=== PATIENT | male | born 1955 | race Caucasian/White ===

== ENCOUNTER 2018-01-04 13:33 | Emergency (ER) | payer OTHER ==
[~2018-01-04] VITALS: Ht 177.8 cm; Wt 78.0 kg
[~2018-01-04 13:33] MED LIST: AMOCLA875 PO; OXYACE5T PO
[2018-01-04] MEDS ORDERED: CEPH500 PO (15:11)
== END 2018-01-04 15:17 | disposition home or self-care (01) ==
LOC: ER 13:33
DX: S68.124A Partial traumatic metacarpophalangeal amputation of right ring finger, initial encounter (principal); Z23 Encounter for immunization; Z88.5 Allergy status to narcotic agent; W31.89XA Contact with other specified machinery, initial encounter
CPT/HCPCS: 12001; 73140; 90471; 90714; 96372; 99282-25; J0690

== ENCOUNTER 2018-01-16 13:14 | Emergency (ER) | payer OTHER ==
[~2018-01-16] VITALS: Ht 177.8 cm; Wt 78.5 kg
[~2018-01-16 13:14] MED LIST changes: +CEPH500 PO
== END 2018-01-16 13:35 | disposition home or self-care (01) ==
LOC: ER 13:14
DX: S61.214D Laceration without foreign body of right ring finger without damage to nail, subsequent encounter (principal); Z88.5 Allergy status to narcotic agent; Z88.8 Allergy status to other drugs, medicaments and biological substances

== ENCOUNTER 2018-08-27 09:45 | Observation (INO) | payer MEDICARE ==
[~2018-08-27] VITALS: Ht 175.3 cm; Wt 70.2 kg
[2018-08-27 10:46] LABS: BASOPHILS ABSOLUTE AUTO 0.07 K/mm3 (0.00-0.23); BASOPHILS PERCENT AUTO 1 % (0-2); EOSINOPHILS ABSOLUTE AUTO 0.07 K/mm3 (0.00-0.68); EOSINOPHILS PERCENT AUTO 1 % (0-6); Hematocrit 43.7 % (37.0-53.0); Hemoglobin 14.7 g/dL (13.5-17.5); IMMATURE GRAN ABSOLUTE AUTO 0.07 K/mm3 (0.00-0.10); IMMATURE GRAN PERCENT AUTO 1 % (0-1); LYMPHOCYTES ABSOLUTE AUTO 1.32 K/mm3 (0.84-5.20); LYMPHOCYTES PERCENT AUTO 9 % (21-46); MONOCYTES ABSOLUTE AUTO 0.56 K/mm3 (0.16-1.47); MONOCYTES PERCENT AUTO 4 % (4-13); Mean Corpuscular HGB 33.9 pg (26.0-34.0); Mean Corpuscular HGB Conc 33.6 g/dL (31.5-36.5); Mean Corpuscular Volume 101 fL (80-100); NEUTROPHILS ABSOLUTE AUTO 12.47 K/mm3 (1.96-9.15); NEUTROPHILS PERCENT AUTO 86 % (41-73); Platelet Count 240 K/mm3 (150-400); RDW Coefficient Variation 12.4 % (11.7-14.2); RDW Standard Deviation 46.3 fL (35.1-46.3); Red Blood Cell Count 4.34 M/mm3 (4.30-5.90); White Blood Cell Count 14.56 K/mm3 (4.00-11.30)
[2018-08-27 11:00] LABS: Alanine Aminotransfer (ALT/SGP 22 U/L (12-78); Albumin, Blood 3.8 g/dL (3.4-5.0); Albumin/Globulin Ratio 1.2 (0.8-1.8); Alk Phos 74 U/L (50-136); Anion Gap 6 mmol/L (6-16); Aspartate Aminotrans (AST/SGOT 16 U/L (12-37); Bilirubin, Total 0.4 mg/dL (0.1-1.0); Blood Urea Nitrogen 15 mg/dL (8-24); CO2, Blood 27 mmol/L (21-32); Calcium, Blood 8.7 mg/dL (8.5-10.1); Chloride, Blood 108 mmol/L (98-108); Creatinine, Blood 0.63 mg/dL (0.60-1.20); Globulin, Blood 3.2 g/dL (2.2-4.0); Glomerular Filtration Rate >60 (60-); Glucose, Blood 114 mg/dL (70-99); Magnesium, Blood 2.1 mg/dL (1.6-2.4); Sodium, Blood 141 mmol/L (136-145); Troponin I <0.015 ng/mL (0.000-0.040)
[2018-08-27] MEDS ORDERED: ASPI325 PO (11:54)
[2018-08-27] MEDS ORDERED: IBUP400 PO (11:54)
[2018-08-27 18:20] LABS: Free Thyroxine 0.98 ng/dL (0.70-1.60)
[2018-08-27 18:22] LABS: Thyroid Stimulating Hormone 0.956 uIU/mL (0.360-4.800)
--- NOTE | 2018-08-27 19:16 | NUR ---
SHIFT SUMMARY PT ARRIVED TO PCU 15 VIA BED FROM ED AT APPROX 1820. PT VSS WITH SOME ASYMPTOMATIC BRADYCARDIA AT 56. PT UP TO TRANSFER FROM ED BED TO HOSPITAL BED IND. WITH SLIGHT DIAPHORESIS WITH AMBULATION. DIAPHORESIS SUBSIDED WITHIN 5 MINUTES. PT ON RA. BILAT LUNGS CLEAR. GALLOP NOTED ON HEART SOUNDS. SEE ADMISSION ASSESSMENT FOR DETAILED HX. PT STATES 10 LB UNINTENTIONAL WEIGHT LOSS IN PAST MONTH. PT STATES EXCESSIVE FATIGUE IN PAST MONTH. PT IN PCU FOR OBS. ECHO IN AM. HANDOFF GIVEN TO JOSE FERRER RN.
--- NOTE | 2018-08-27 22:33 | NUR ---
ASSUMED CARE OF PATIENT AT APPROXIMATELY 1905 FROM MASHA Alfaro RN AND XIN Cooper RN. PATIENT ALERT AND ORIENTED X4; SBA OUT OF BED D/T SYNCOPE X2 TODAY. PATIENT REPORTS SOME DIAPHORESIS WITH AMBULATION OCCASIONALLY. PATIENT DENIES PAIN, NUMBNESS, TINGLING, DIZZINESS AND NAUSEA. SB ON TELE; OXYGEN SATURATION ABOVE 90% ON ROOM AIR. PATIENT REPORTS HE THINKS HE NORMALLY HAS A LOWER HR. CARDIO CONSULT CALLED IN. NS INFUSING PER ORDER. PATIENT CURRENTLY RESTING IN BED; CALL LIGHT IN REACH; BED IN LOWEST POSISTION; WILL CONTINUE TO MONITOR AND ASSESS UNTIL END OF SHIFT.
[2018-08-28 02:33] LABS: Anion Gap 6 mmol/L (6-16); Blood Urea Nitrogen 12 mg/dL (8-24); Bun/Creatinine Ratio 19.6 (12.0-20.0); CO2, Blood 26 mmol/L (21-32); Calcium, Blood 8.4 mg/dL (8.5-10.1); Chloride, Blood 112 mmol/L (98-108); Creatinine, Blood 0.61 mg/dL (0.60-1.20); Glomerular Filtration Rate >60 (60-); Glucose, Blood 93 mg/dL (70-99); Sodium, Blood 144 mmol/L (136-145)
--- NOTE | 2018-08-28 09:25 | NUR ---
SHIFT NOTE ASSUMED CARE OF PT AT APPROX 0715. VSS AND IN NO APPARENT SIGNS OF DISTRESS. SINGLE ACUTE EPISODE OF SINUS FRANKIE DOWN TO 39 AT 0644. PER PT, ASYMPTOMATIC AT THAT TIME. WILL CONTINUE TO CLOSELY MONITOR HR AND SX. ECHO IN THIS AM, AWAITING RESULTS. CARDS CONSULT IN AND AWAITING DR CONSULT WITH PT. AT THIS TIME, PT IS RESTING COMFORTABLY. PT WITH GOOD APPITITE. PT DENIES DIAPHORESIS, NAUSEA, SOB, CHEST PAIN, CHEST PRESSURE. PT WITHOUT COMPLAINTS OR QUESTIONS AT THIS TIME. SEE SHIFT ASSESSMENT FOR DETAILED ASSESSMENT. WILL CONTINUE TO MONITOR AND UPDATE APPROPRIATE
--- NOTE | 2018-08-28 10:54 | NUR ---
Echocardiogram completed.
--- NOTE | 2018-08-28 17:34 | NUR ---
Update: DC instructions provided to pt. IV removed. Pt currently waiting for spouse to pick pt up. Pt getting dressed in room. Will continue to monitor until pt leaves hospital campus. Denies any further questions, complaints or requests at this time.
--- NOTE | 2018-08-28 18:27 | NUR ---
Update: Pt officially discharged at 182.
--- NOTE | 2018-08-28 19:21 | NUR ---
shift summary pt vss this shift. no acute changes. pt without distress or chest pain or chest pressure. pt tolerated activity with normal heart rate response. pt denies diaphoresis with ambulation as shift went on. pt denies sob or difficulty breathing throughout shift. pt denies changes in mentation or dizzyness throughout shift. dr mascorro in with pt this afternoon discussing probable single vasovagal syncople episode likely to be an isolated event and not a recurring issue. dr perez notified of dr mascorro clearing pt to d/c and pt d/c at 1835.
== END 2018-08-28 17:55 | disposition home or self-care (01) ==
LOC: ER 09:45 → PCU 09:46
PROVIDERS: Internal Medicine; ADMIT Internal Medicine
DX: R55 Syncope and collapse (principal); D72.829 Elevated white blood cell count, unspecified; Z88.5 Allergy status to narcotic agent
CPT/HCPCS: 36415; 71046; 80048; 80053; 83735; 84439; 84443; 84484; 85025; 85379; 93005; 93010; 93306; 93880; 96360; 96361; 99285-25; G0378; J7030

== ENCOUNTER → 2018-09-17 | Outpatient (CLI) | payer MEDICARE ==
[~2018-09-17] MED LIST changes: +ASPI325 PO; +IBUP400 PO
== END | disposition home or self-care (01) ==
LOC: LAB 17:31 → LAB SHORT 17:31
DX: R55 Syncope and collapse (principal); R41.3 Other amnesia
CPT/HCPCS: 87086

== ENCOUNTER 2018-10-21 08:33 | Day surgery (SDC) | payer MEDICARE ==
[~2018-10-21] VITALS: Ht 172.7 cm; Wt 75.0 kg
[~2018-10-21 08:33] MED LIST changes: +MOTRIN IB200 MG PO
--- NOTE | 2018-10-21 09:39 | NUR ---
Pt with clear lungs, SB
--- NOTE | 2018-10-21 17:17 | NUR ---
PT HAS BEEN STABLE POST PACEMAKER PLACEMENT. PAIN MINIMAL IN CHEST, MANAGED WITH ICE PACK AND TYLENOL PRN. PT CAROLANN CARDIAC DIET WELL. UP TO VOID WITH MIN ASSIST. SLING IN PLAVE TO LEFT ARM TO ENCOURAGE FOLLOWING PRECAUTIONS. GAUZE TO LEFT CHEST WALL, CDI. PLAN FOR EKG IN THE AM WELL CHEST XRAY. TELE SR/PACED. PT HAD SUDDEN ONSET SWEATING X1 WITH NO TELE CHANGES, CP OR ACCOMPANYING SYMPTOMS. PROBABLE DC HOME TOMORROW IF STABLE. PAS TO BLE. USES CALL LIGHT APPROPRIATELY NEEDED.
--- NOTE | 2018-10-22 06:40 | NUR ---
SHIFT SUMMARY LYING IN LOW FOWLERS WITH EYES CLOSED. MINIMAL ASSIST THIS SHIFT AND TOLERATED WELL, HAS BEEN INDEPENDENT MOST OF THE TIME IN ROOM. DENIES PAIN, DISCOMFORT, OR FURTHER NEEDS AT THIS TIME. SAFETY MEASURES IN PLACE. WILL GIVE HAND OFF TO ONCOMING SHIFT USING SBAR.
--- NOTE | 2018-10-22 09:43 | NUR ---
ROUNDING: DR JEAN IN TO SEE PATIENT. PLAN TO REVIEW CXR AND EKG AND PROBABLE DC TO HOME TODAY. DRESSING WNL. TELE 100% PACED. DC INSTRUCTIONS REVIEWED WITH PATIENT BY DOCTOR.
--- NOTE | 2018-10-22 12:05 | NUR ---
DISCHARGE: PT DC TO HOME AT THIS TIME WITH SPOUSE. VERBALIZED UNDERSTANDING OF INSTRUCTIONS, FOLLOW UP, PROBLEMS TO REPORT AND MEDICATIONS. IV DC'D WNL. PT LEFT AMBULATORY TO CAR WITH BELONGINGS.
== END 2018-10-22 12:04 | disposition home or self-care (01) ==
LOC: MHTC 08:33 → SURS 11:50 → MHTC 12:07 → SURS 10-22 12:04
PROC: 0JH606Z Insertion of Pacemaker, Dual Chamber into Chest Subcutaneous Tissue and Fascia, Open Approach (ICD-10-PCS; principal; 2018-10-21)
PROC: 02HK3JZ Insertion of Pacemaker Lead into Right Ventricle, Percutaneous Approach (ICD-10-PCS; 2018-10-21)
DX: I49.5 Sick sinus syndrome (principal); I44.39 Other atrioventricular block; F41.9 Anxiety disorder, unspecified; F32.9 Major depressive disorder, single episode, unspecified; K57.90 Diverticulosis of intestine, part unspecified, without perforation or abscess without bleeding; Z87.891 Personal history of nicotine dependence; Z88.5 Allergy status to narcotic agent
CPT/HCPCS: 33208; 33228; 71045; 71046; 76937; 93005; 93010; 99152; A9270; C1785; C1898; J0690; J1644; J2250; J3010; J7030; J7040

== ENCOUNTER 2021-09-20 07:13 | Day surgery (SDC) | payer MEDICARE ==
[~2021-09-20] VITALS: Ht 177.8 cm; Wt 78.5 kg
--- NOTE | 2021-09-20 07:41 | NUR ---
09/20/21 0741 Meliton Panchal CALL LIGHT WITHIN REACH. TETRACAINE AT 0935 PLEDGETT AT 0737 IN THE LEFT EYE
== END 2021-09-20 09:05 | disposition home or self-care (01) ==
LOC: ORSCSDS 07:13
PROVIDERS: Ophthalmology
PROC: 08RK3JZ Replacement of Left Lens with Synthetic Substitute, Percutaneous Approach (ICD-10-PCS; principal; 2021-09-20 08:30)
DX: H25.13 Age-related nuclear cataract, bilateral (principal); G47.33 Obstructive sleep apnea (adult) (pediatric); N18.9 Chronic kidney disease, unspecified; I25.10 Atherosclerotic heart disease of native coronary artery without angina pectoris; Z95.0 Presence of cardiac pacemaker; N18.6 End stage renal disease; Z79.82 Long term (current) use of aspirin; Z79.899 Other long term (current) drug therapy
CPT/HCPCS: J2001; J2250; J3010; J3301; J7040; V2632

== ENCOUNTER 2021-10-11 07:18 | Day surgery (SDC) | payer MEDICARE ==
[~2021-10-11] VITALS: Ht 177.8 cm; Wt 76.8 kg
== END 2021-10-11 09:07 | disposition home or self-care (01) ==
LOC: ORSCSDS 07:18
PROVIDERS: Ophthalmology
PROC: 08RJ3JZ Replacement of Right Lens with Synthetic Substitute, Percutaneous Approach (ICD-10-PCS; principal; 2021-10-11 08:30)
DX: H25.11 Age-related nuclear cataract, right eye (principal); Z95.0 Presence of cardiac pacemaker; I10 Essential (primary) hypertension; G47.33 Obstructive sleep apnea (adult) (pediatric); F41.9 Anxiety disorder, unspecified; F32.A Depression, unspecified; Z79.82 Long term (current) use of aspirin; Z79.899 Other long term (current) drug therapy
CPT/HCPCS: J2001; J2250; J3010; J3301; J7040; V2632

== ENCOUNTER 2024-11-05 17:23 | Emergency (ER) | payer MEDICARE ==
[~2024-11-05] VITALS: Ht 177.8 cm; Wt 68.0 kg
[2024-11-05 18:01] LABS: BASOPHILS ABSOLUTE AUTO 0.04 K/mm3 (0.00-0.23); BASOPHILS PERCENT AUTO 0 % (0-2); EOSINOPHILS ABSOLUTE AUTO 0.04 K/mm3 (0.00-0.68); EOSINOPHILS PERCENT AUTO 0 % (0-6); Hematocrit 39.2 % (37.0-53.0); Hemoglobin 13.5 g/dL (13.5-17.5); IMMATURE GRAN ABSOLUTE AUTO 0.06 K/mm3 (0.00-0.10); IMMATURE GRAN PERCENT AUTO 0 % (0-1); LYMPHOCYTES ABSOLUTE AUTO 1.63 K/mm3 (0.84-5.20); LYMPHOCYTES PERCENT AUTO 11 % (21-46); MONOCYTES ABSOLUTE AUTO 0.89 K/mm3 (0.16-1.47); MONOCYTES PERCENT AUTO 6 % (4-13); Mean Corpuscular HGB 34.4 pg (26.0-34.0); Mean Corpuscular HGB Conc 34.4 g/dL (31.5-36.5); Mean Corpuscular Volume 100 fL (80-100); Mean Platelet Volume 9.9 fL (9.1-12.4); NEUTROPHILS ABSOLUTE AUTO 12.64 K/mm3 (1.96-9.15); NEUTROPHILS PERCENT AUTO 83 % (41-73); Platelet Count 228 K/mm3 (150-400); RDW Coefficient Variation 12.9 % (11.7-14.2); RDW Standard Deviation 47.8 fL (35.1-46.3); Red Blood Cell Count 3.93 M/mm3 (4.30-5.90)
[2024-11-05 18:30] LABS: Albumin, Blood 3.4 g/dL (3.4-5.0); Albumin/Globulin Ratio 0.8 (0.8-1.8); Bilirubin, Total 0.8 mg/dL (0.1-1.0); Bun/Creatinine Ratio 27.4 (12.0-20.0); Creatinine, Blood 0.66 mg/dL (0.60-1.20); Potassium, Blood 3.8 mmol/L (3.5-5.5); Total Protein, Blood 7.4 g/dL (6.4-8.2)
[2024-11-05] MEDS ORDERED: CIPROFLOXACIN IV ONE (20:25)
[2024-11-05] MEDS ORDERED: MetroNIDAZOLE 500MG/NS 100 ml 100 ML IV ONE (20:25)
[2024-11-05] MEDS ORDERED: [UNRECOGNIZED DRUG - OTHER] IV ONE (20:25)
[2024-11-05 20:35] LABS: Source, Urine Clean Catch
[2024-11-05 20:49] LABS: Appearance, Urine Clear (Clear); Bilirubin, Urine Neg (Neg); Blood, Urine 2+ (Neg); Color, Urine Yellow (P-Yellow); Glucose Qualitative, Urine Neg (Neg); Ketones, Urine 3+ (Neg); Leukocyte Esterase, Urine 1+ (Neg); Nitrite, Urine Neg (Neg); Protein, Urine 1+ (Neg); Urobilinogen, Urine NORM (Normal)
[2024-11-05 20:57] LABS: Bacteria Rare /hpf; Red Blood Cells, Urine Not Seen /hpf (0-2); Squamous Epithelial Cells Rare /hpf (Few)
[2024-11-05 22:00] VITALS: BP 130/80
[2024-11-05] MEDS ORDERED: CIPR500 PO (22:18)
[2024-11-05] MEDS ORDERED: METR500 PO (22:18)
== END 2024-11-05 22:27 | disposition home or self-care (01) ==
LOC: ER 17:23
PROVIDERS: Student in an Organized Health Care Education/Training Program
DX: K57.30 Diverticulosis of large intestine without perforation or abscess without bleeding (principal); Z88.5 Allergy status to narcotic agent; Z79.82 Long term (current) use of aspirin; Z87.891 Personal history of nicotine dependence
CPT/HCPCS: 71046; 74177; 80053; 81001; 83605; 83690; 83880; 84484; 85025; 87077; 87086; 87186; 93005; 93010; 96365-59; 96367; 99284-25; J0744; Q9967

== ENCOUNTER 2024-12-27 13:32 | Emergency (ER) | payer MEDICARE ==
[~2024-12-27] VITALS: Ht 177.8 cm; Wt 68.0 kg
[~2024-12-27 13:32] MED LIST changes: +CIPR500 PO; +METR500 PO
[2024-12-27 14:44] LABS: BASOPHILS ABSOLUTE AUTO 0.05 K/mm3 (0.00-0.23); BASOPHILS PERCENT AUTO 1 % (0-2); EOSINOPHILS ABSOLUTE AUTO 0.03 K/mm3 (0.00-0.68); EOSINOPHILS PERCENT AUTO 0 % (0-6); Hematocrit 39.8 % (37.0-53.0); Hemoglobin 13.8 g/dL (13.5-17.5); IMMATURE GRAN ABSOLUTE AUTO 0.02 K/mm3 (0.00-0.10); IMMATURE GRAN PERCENT AUTO 0 % (0-1); LYMPHOCYTES ABSOLUTE AUTO 1.91 K/mm3 (0.84-5.20); LYMPHOCYTES PERCENT AUTO 21 % (21-46); MONOCYTES ABSOLUTE AUTO 0.41 K/mm3 (0.16-1.47); MONOCYTES PERCENT AUTO 5 % (4-13); Mean Corpuscular HGB Conc 34.7 g/dL (31.5-36.5); Mean Corpuscular Volume 98 fL (80-100); NEUTROPHILS ABSOLUTE AUTO 6.63 K/mm3 (1.96-9.15); NEUTROPHILS PERCENT AUTO 73 % (41-73); NRBC ABSOLUTE 0.00 K/mm3 (0.00-0.02); NRBC Auto 0.0 /100 WBC (0.0-0.2); Platelet Count 246 K/mm3 (150-400); RDW Coefficient Variation 12.9 % (11.7-14.2); RDW Standard Deviation 46.0 fL (35.1-46.3)
[2024-12-27 15:24] LABS: Alanine Aminotransfer (ALT/SGP 19.0 U/L (12-78); Albumin, Blood 3.6 g/dL (3.4-5.0); Albumin/Globulin Ratio 1.1 (0.8-1.8); Anion Gap 7.0 mmol/L (3-11); Aspartate Aminotrans (AST/SGOT 13.0 U/L (12-37); Bilirubin, Total 0.7 mg/dL (0.1-1.0); Blood Urea Nitrogen 11.0 mg/dL (8-24); CO2, Blood 25.0 mmol/L (21-32); Calcium, Blood 8.6 mg/dL (8.5-10.1); Chloride, Blood 108.0 mmol/L (98-108); Creatinine, Blood 0.55 mg/dL (0.60-1.20); Globulin, Blood 3.4 g/dL (2.2-4.0); Glucose, Blood 108.0 mg/dL (70-99); Potassium, Blood 3.9 mmol/L (3.5-5.5); Sodium, Blood 136.0 mmol/L (136-145); Total Protein, Blood 7.0 g/dL (6.4-8.2)
[2024-12-27 15:41] VITALS: BP 134/84
[2024-12-27] MEDS ORDERED: AMOCLA875 PO (16:40)
== END 2024-12-27 16:55 | disposition home or self-care (01) ==
LOC: ER 13:32
PROVIDERS: Student in an Organized Health Care Education/Training Program
DX: K57.92 Diverticulitis of intestine, part unspecified, without perforation or abscess without bleeding (principal); Z79.82 Long term (current) use of aspirin
CPT/HCPCS: 80053; 83690; 85025; 93005; 93010; 99284-25; A9270

== ENCOUNTER 2024-12-31 10:35 | Emergency (ER) | payer MEDICARE ==
[~2024-12-31] VITALS: Ht 177.8 cm; Wt 68.0 kg
[2024-12-31 11:19] LABS: BASOPHILS ABSOLUTE AUTO 0.05 K/mm3 (0.00-0.23); BASOPHILS PERCENT AUTO 1 % (0-2); EOSINOPHILS ABSOLUTE AUTO 0.09 K/mm3 (0.00-0.68); EOSINOPHILS PERCENT AUTO 1 % (0-6); Hematocrit 40.1 % (37.0-53.0); Hemoglobin 13.8 g/dL (13.5-17.5); IMMATURE GRAN ABSOLUTE AUTO 0.02 K/mm3 (0.00-0.10); IMMATURE GRAN PERCENT AUTO 0 % (0-1); LYMPHOCYTES ABSOLUTE AUTO 2.14 K/mm3 (0.84-5.20); LYMPHOCYTES PERCENT AUTO 28 % (21-46); MONOCYTES ABSOLUTE AUTO 0.48 K/mm3 (0.16-1.47); MONOCYTES PERCENT AUTO 6 % (4-13); Mean Corpuscular HGB Conc 34.4 g/dL (31.5-36.5); Mean Corpuscular Volume 98 fL (80-100); NEUTROPHILS ABSOLUTE AUTO 4.95 K/mm3 (1.96-9.15); NEUTROPHILS PERCENT AUTO 64 % (41-73); NRBC ABSOLUTE 0.00 K/mm3 (0.00-0.02); NRBC Auto 0.0 /100 WBC (0.0-0.2); Platelet Count 257 K/mm3 (150-400); RDW Coefficient Variation 13.0 % (11.7-14.2); RDW Standard Deviation 46.8 fL (35.1-46.3)
[2024-12-31 11:34] LABS: Alanine Aminotransfer (ALT/SGP 16.0 U/L (12-78); Albumin, Blood 3.9 g/dL (3.4-5.0); Albumin/Globulin Ratio 1.2 (0.8-1.8); Anion Gap 5.0 mmol/L (3-11); Aspartate Aminotrans (AST/SGOT 17.0 U/L (12-37); Bilirubin, Total 0.7 mg/dL (0.1-1.0); Blood Urea Nitrogen 10.0 mg/dL (8-24); CO2, Blood 29.0 mmol/L (21-32); Calcium, Blood 9.1 mg/dL (8.5-10.1); Chloride, Blood 105.0 mmol/L (98-108); Creatinine, Blood 0.6 mg/dL (0.60-1.20); Globulin, Blood 3.2 g/dL (2.2-4.0); Glucose, Blood 104.0 mg/dL (70-99); Potassium, Blood 4.0 mmol/L (3.5-5.5); Sodium, Blood 135.0 mmol/L (136-145); Total Protein, Blood 7.1 g/dL (6.4-8.2)
[2024-12-31] MEDS ORDERED: Ketorolac Tromethamine 30mg Vial IV ONE (14:00)
[2024-12-31] MEDS ORDERED: Dexamethasone Sod Phos 10 MG/ML 1ML VIAL IV ONE (14:05)
[2024-12-31 14:50] LABS: Source, Urine Voided
[2024-12-31 14:52] LABS: Bilirubin, Urine Neg (Neg); Color, Urine Yellow (P-Yellow); Glucose Qualitative, Urine Neg (Neg); Ketones, Urine 1+ (Neg); Leukocyte Esterase, Urine Neg (Neg); Protein, Urine Neg (Neg); Specific Gravity, Urine 1.005 (1.003-1.022); Urobilinogen, Urine NORM (Normal)
[2024-12-31] MEDS ORDERED: Flagyl500 MG PO (15:14)
[2024-12-31] MEDS ORDERED: IBUP600 PO (15:14)
[2024-12-31] MEDS ORDERED: Cipro500 MG PO (15:14)
[2024-12-31 15:25] VITALS: BP 157/93
== END 2024-12-31 15:25 | disposition home or self-care (01) ==
LOC: ER 10:35
PROVIDERS: Emergency Medicine
DX: R10.84 Generalized abdominal pain (principal); M54.9 Dorsalgia, unspecified; Z88.5 Allergy status to narcotic agent; Z91.040 Latex allergy status; Z79.82 Long term (current) use of aspirin; Z79.899 Other long term (current) drug therapy; Z79.2 Long term (current) use of antibiotics; Z87.891 Personal history of nicotine dependence
CPT/HCPCS: 74177; 80053; 81003; 83690; 85025; 96374; 96375; 99284-25; J1100; J1885; Q9967